=== PATIENT | female | born 1990 | race Caucasian/White ===

== ENCOUNTER 2023-01-29 15:50 | Observation (INO) | payer OTHER ==
[~2023-01-29] VITALS: Ht 157.5 cm; Wt 68.5 kg
[~2023-01-29 15:50] MED LIST: DIFLUCAN100 MG PO; IBUPROFEN PO; LEVAQUIN500 MG PO; NORCO 10-325 T1 EACH PO; NORCO PO
[2023-01-29 16:39] LABS: CLARITY,URINE CLEAR (CLEAR); COLOR,URINE YELLOW (YELLOW); KETONES,URINE NEGATIVE (NEGATIVE); LEUKOCYTE ESTERASE ,URINE TRACE (NEGATIVE); NITRITE,URINE NEGATIVE (NEGATIVE); PROTEIN,URINE DIPSTICK NEGATIVE (NEGATIVE); URINE UROBILINOGEN 0.2 mg/dL (0.2 - 1)
[2023-01-29 16:58] LABS: BASOPHILS % 0.4 % (0.0-1.0); EOSINOPHILS # (AUTO) 0.1 (0.0-0.4); EOSINOPHILS % 0.6 % (0.0-6.0); HEMATOCRIT 46.3 % (34.2-44.1); HEMOGLOBIN 15.9 g/dL (12.0-16.0); LYMPHOCYTES # (AUTO) 2.2 (1.0-3.2); LYMPHOCYTES % 22.7 % (18.0-39.1); MEAN CORPUSCULAR HEMOGLOBIN 29.3 pg (28-32); MEAN CORPUSCULAR HGB CONC 34.3 g/dL (31-35); MEAN CORPUSCULAR VOLUME 85.4 fL (81-99); MONOCYTES # (AUTO) 0.5 (0.2-0.8); MONOCYTES % 5.5 % (4.4-11.3); NEUTROPHILS # (AUTO) 6.8 (2.1-6.9); NEUTROPHILS % 70.5 % (38.7-80.0); PLATELET COUNT 314 x10e3/uL (140-360); RED BLOOD COUNT 5.42 x10e6/uL (3.6-5.1); RED CELL DISTRIBUTION WIDTH 12.6 % (11.7-14.4)
[2023-01-29 17:02] LABS: BACTERIA,URINE RARE /HPF; EPITHELIAL CELLS,URINE MODERATE /LPF; RBC,URINE 0-5 /HPF (0-5); WBC,URINE (MAN) 0-5 /HPF (0-5)
[2023-01-29 17:12] LABS: ALBUMIN 4.4 g/dL (3.5-5.0); ALBUMIN/GLOBULIN RATIO 1.1 (0.8-2.0); ANION GAP 14.5 mmol/L (8-16); CALCIUM 9.7 mg/dL (8.4-10.2); CREATININE, SERUM 0.8 mg/dL (0.57-1.11); POTASSIUM 3.5 mmol/L (3.5-5.1)
[2023-01-29] MEDS: KETOROLAC TROMETHAMINE 30 MG/ML VIAL IV PRN (17:32)
[2023-01-29] MEDS: ONDANSETRON HCL INJ 2MG/ML 2ML 2 MG/ML VIAL IV PRN (17:32)
[2023-01-29] MEDS ORDERED: SODIUM CHLORIDE 0.9% 1000ML 1,000 ML ONE (17:47)
[2023-01-29] MEDS ORDERED: ONDANSETRON HCL INJ 2MG/ML 2ML 2 MG/ML VIAL IV PRN (18:45)
[2023-01-29 20:55] VITALS: BP 109/68; PULSE 93; RESP 18; TEMP 97.7; O2SAT 100
[2023-01-29] MEDS ORDERED: ACETAMINOPHEN 325 MG TAB PO PRN (21:15)
[2023-01-29] MEDS ORDERED: BENZONATATE 100 MG CAP PO PRN (21:15)
[2023-01-29] MEDS ORDERED: HYDRALAZINE HCL 20 MG/ML VIAL IV PRN (21:15)
[2023-01-29] MEDS ORDERED: DEXTROSE 50% SYRINGE 50 ML IV PRN (21:15)
[2023-01-29] MEDS ORDERED: SIMETHICONE 80 MG CHEW PO PRN (21:15)
[2023-01-29] MEDS ORDERED: POTASSIUM CHLORIDE 20 MEQ TAB CR PO PRN (21:15)
[2023-01-29] MEDS ORDERED: MELATONIN 5 MG TABLET PO PRN (21:15)
[2023-01-29] MEDS ORDERED: DIPHENHYDRAMINE HCL 25 MG CAP PO PRN (21:15)
[2023-01-29] MEDS ORDERED: ALBUTEROL/IPRATROPIUM 3 ML NEB NEB PRN (21:15)
[2023-01-29] MEDS ORDERED: LIDOCAINE 4% PATCH TP PRN (21:15)
[2023-01-29] MEDS ORDERED: ALBUTEROL SULF 0.083% NEB SOLN 3 ML NEB NEB PRN (21:30)
[2023-01-29] MEDS ORDERED: IPRATROPIUM BROMIDE 0.02% 2.5 ML NEB NEB PRN (21:30)
[2023-01-29] MEDS: SODIUM CHLORIDE 0.9% 1000ML 1,000 ML IV SCH (23:07)
[2023-01-29] MEDS: DOCUSATE SODIUM 100 MG CAP PO PRN (23:22)
[2023-01-29 23:58] VITALS: BP 109/68; PULSE 93; RESP 18; TEMP 97.7; O2SAT 100
[2023-01-30] VITALS (9 sets, daily range): BP systolic 97–126; BP diastolic 64–87; PULSE 67–93; RESP 18–19; TEMP 97.5–98.2; O2SAT 97–100
[2023-01-30 05:47] LABS: BASOPHILS % 0.4 % (0.0-1.0); EOSINOPHILS # (AUTO) 0.1 (0.0-0.4); EOSINOPHILS % 1.8 % (0.0-6.0); HEMATOCRIT 42.3 % (34.2-44.1); LYMPHOCYTES # (AUTO) 2.4 (1.0-3.2); MEAN CORPUSCULAR HEMOGLOBIN 29.5 pg (28-32); MEAN CORPUSCULAR HGB CONC 33.1 g/dL (31-35); MEAN CORPUSCULAR VOLUME 89.1 fL (81-99); MONOCYTES # (AUTO) 0.6 (0.2-0.8); MONOCYTES % 7.3 % (4.4-11.3); NEUTROPHILS # (AUTO) 4.4 (2.1-6.9); NEUTROPHILS % 58.1 % (38.7-80.0); PLATELET COUNT 268 x10e3/uL (140-360); RED BLOOD COUNT 4.75 x10e6/uL (3.6-5.1); RED CELL DISTRIBUTION WIDTH 12.5 % (11.7-14.4)
[2023-01-30 06:05] LABS: ANION GAP 10.3 mmol/L (8-16); CALCIUM 8.4 mg/dL (8.4-10.2); CREATININE, SERUM 0.86 mg/dL (0.57-1.11)
[2023-01-30 06:07] LABS: POTASSIUM 4.3 mmol/L (3.5-5.1)
[2023-01-30] MEDS: KETOROLAC TROMETHAMINE 30 MG/ML VIAL IV PRN ×2 (06:14→16:12)
[2023-01-30 06:24] LABS: MAGNESIUM 1.9 MG/DL (1.3-2.1); PHOSPHORUS 3.8 MG/DL (2.3-4.7)
[2023-01-30 06:38] LABS: THYROID STIMULATING HORMONE 1.517 uIU/mL (0.350-4.940)
[2023-01-30] MEDS: PANTOPRAZOLE SOD 40 MG TABEC PO SCH (08:55)
[2023-01-30] MEDS: SODIUM CHLORIDE 0.9% 1000ML 1,000 ML IV SCH ×2 (08:55→23:57)
[2023-01-30] MEDS: DOCUSATE SODIUM 100 MG CAP PO PRN (08:55)
[2023-01-30] MEDS: HYDROCODONE/APAP 5MG-325MG TAB PO PRN ×2 (11:34→18:57)
[2023-01-30] MEDS ORDERED: ENOXAPARIN SOD INJ 40 MG/0.4 ML SYR SC SCH (17:00)
[2023-01-30] MEDS: ONDANSETRON HCL INJ 2MG/ML 2ML 2 MG/ML VIAL IV PRN (23:56)
[2023-01-31] VITALS: BP 98/60; PULSE 81; RESP 18; TEMP 97.5; O2SAT 98
[2023-01-31] MEDS: DOCUSATE SODIUM 100 MG CAP PO PRN (00:50)
[2023-01-31 04:00] VITALS: BP 112/70; PULSE 63; RESP 18; TEMP 98; O2SAT 100
[2023-01-31 05:31] LABS: BASOPHILS % 0.5 % (0.0-1.0); EOSINOPHILS # (AUTO) 0.3 (0.0-0.4); EOSINOPHILS % 3.2 % (0.0-6.0); HEMATOCRIT 39.4 % (34.2-44.1); HEMOGLOBIN 13.4 g/dL (12.0-16.0); LYMPHOCYTES # (AUTO) 2.6 (1.0-3.2); MEAN CORPUSCULAR HEMOGLOBIN 29.6 pg (28-32); MONOCYTES # (AUTO) 0.5 (0.2-0.8); MONOCYTES % 6.6 % (4.4-11.3); NEUTROPHILS # (AUTO) 4.5 (2.1-6.9); NEUTROPHILS % 56.6 % (38.7-80.0); PLATELET COUNT 231 x10e3/uL (140-360); RED BLOOD COUNT 4.53 x10e6/uL (3.6-5.1); RED CELL DISTRIBUTION WIDTH 12.6 % (11.7-14.4)
[2023-01-31 05:56] LABS: ANION GAP 10.7 mmol/L (8-16); CALCIUM 8.1 mg/dL (8.4-10.2); CREATININE, SERUM 0.72 mg/dL (0.57-1.11); POTASSIUM 3.7 mmol/L (3.5-5.1)
[2023-01-31] MEDS: SODIUM CHLORIDE 0.9% 1000ML 1,000 ML IV SCH (06:19)
[2023-01-31 08:20] VITALS: BP 114/71; PULSE 77; RESP 23; TEMP 98.6; O2SAT 100
[2023-01-31] MEDS: PANTOPRAZOLE SOD 40 MG TABEC PO SCH (08:45)
[2023-01-31 09:44] VITALS: BP 114/71; PULSE 77; RESP 23; TEMP 98.6; O2SAT 100
[2023-01-31 12:09] VITALS: BP 123/90; PULSE 77; RESP 22; TEMP 98.5; O2SAT 100
[2023-01-31 16:03] VITALS: BP 103/66; PULSE 70; RESP 23; TEMP 98.7; O2SAT 100
[2023-01-31] MEDS ORDERED: CEFDINIR300 MG PO (16:16)
[2023-01-31] MEDS ORDERED: ONDANSETRON HCL 4 MG ORAL DISINTEGRATING TAB PO PRN (17:15)
== END 2023-01-31 18:00 | disposition home or self-care (01) ==
LOC: ER 15:57 → ERHOLD 18:43 → INTOOBSV 18:43 → MED/SURG3 21:00
PROVIDERS: ADMIT Internal Medicine; ATTEND Internal Medicine
DX: N20.0 Calculus of kidney (principal); N39.0 Urinary tract infection, site not specified; Z88.6 Allergy status to analgesic agent; Z20.822 Contact with and (suspected) exposure to COVID-19
CPT/HCPCS: 0223U; 36415 ×3; 74176; 80048 ×2; 80053; 81001; 81025; 83735; 84100; 84443; 84702; 85025 ×3; 87086; 96361; 99284; G0378 ×3; J0696 ×3; J1650; J1885 ×2; J2405 ×2; J7030 ×3; S0164 ×2

== ENCOUNTER → 2023-02-16 | Day surgery (SDC) | payer OTHER ==
[~2023-02-16] MED LIST changes: +CEFDINIR300 MG PO; +CEFTRIAXONE 1 GM VIAL ONE; +DEXAMETHASONE SOD PHOS INJ 4 MG/ML SDV ONE; +FENTANYL CITRATE/PF 100MCG/2 ML INJ ONE; +LACTATED RINGER'S 1,000 ML ONE; +LIDOCAINE HCL 2% LOCAL INJ 5 ML SDV VIAL INJ ONE; +METOCLOPRAMIDE HCL 10 MG/2ML VIAL ONE; +MIDAZOLAM HCL 2 MG/2 ML VIAL ONE; +ONDANSETRON HCL INJ 2MG/ML 2ML 2 MG/ML VIAL ONE; +POVIDONE IODINE 0.05% 0.05 % ML PO ONE; +PROPOFOL IV EMULSION 10 MG/ML 20 ML VIAL ONE; +SEVOFLURANE INHAL SOLN 250 ML PEN BTL ONE
[2023-02-16 08:55] VITALS: BP 100/67; PULSE 64; RESP 16; O2SAT 99
== END | disposition home or self-care (01) ==
LOC: OR 05:07
PROVIDERS: ATTEND Urology
DX: N20.0 Calculus of kidney (principal); N20.1 Calculus of ureter; N13.30 Unspecified hydronephrosis; N39.0 Urinary tract infection, site not specified; F41.9 Anxiety disorder, unspecified; Z72.0 Tobacco use; Z91.199 Patient's noncompliance with other medical treatment and regimen due to unspecified reason; Z88.6 Allergy status to analgesic agent; Z01.818 Encounter for other preprocedural examination; Z84.1 Family history of disorders of kidney and ureter
CPT/HCPCS: 50590; 74018; 81025; J0696; J1100; J2001; J2250; J2405; J2704; J2765; J3010; J7121